=== PATIENT | male | born 1955 | race Caucasian/White ===

== ENCOUNTER → 2019-12-15 10:19 | Outpatient (CLI) | payer MEDICARE, OTHER, SELFPAY ==
--- NOTE | 2019-12-15 11:56 | PM.TREADMILL ---
Cardiac Stress Test Report Referral & Results Date Patient Seen: 12/15/19 Time Patient Seen: 11:56 Requesting provider: Arjun Bowers Indication: dyspnea Rest ECG: sinus rhythm Procedure Note: Standard [place] protocol, 10:00, 10.7 METS Very good exercise capacity, OTILIA -25% Normal hemodynamic response to exercise No chest pain or anginal symptoms Resting ECG sinus rhythm, no ST changes or ectopy Impression: Normal exercise stress test. Please note: Actual ECG tracings can be found in the PACS system.
== END ==
PROVIDERS: Family Provider Internal Medicine; Referring Provider Student in an Organized Health Care Education/Training Program; Visit Provider Student in an Organized Health Care Education/Training Program
DX: R06.09 Other forms of dyspnea (principal)
CPT/HCPCS: 93017

== ENCOUNTER → 2020-02-23 08:07 | Outpatient (CLI) | payer MEDICARE, OTHER, SELFPAY ==
--- NOTE | 2020-02-29 09:20 | PM.PFT.1 ---
Pulmonary Function Test Referral & Results Date Patient Seen: 02/23/20 Requesting provider: Arjun Bowers Results: The spirometry demonstrates an FVC of 3.46 L which is 67% of predicted. The FEV1 was measured at 2.57 L which is 67% of predicted. The FEV1/FVC ratio was 74 which is 99% of predicted. Following the administration of bronchodilator there was a 33% improvement in FEV1 and a 135% improvement in FEF 25-75%. Lung volumes show an SVC of 4.53 L which is 88% of predicted. The diffusing capacity was measured at 36.54 which is 100% of predicted. The maximum voluntary ventilation was normal Interpretation: This study demonstrates mild to moderate obstructive lung disease with evidence of significant benefit following bronchodilator as above Lung volumes are probably normal as is diffusing capacity This is consistent with a diagnosis of asthma
== END ==
PROVIDERS: Family Provider Internal Medicine; PCP Student in an Organized Health Care Education/Training Program; Referring Provider Student in an Organized Health Care Education/Training Program; Visit Provider Student in an Organized Health Care Education/Training Program
DX: R06.09 Other forms of dyspnea (principal); J98.8 Other specified respiratory disorders
CPT/HCPCS: 94060; 94726; 94729

== ENCOUNTER 2022-12-25 18:01 | Emergency (ER) | payer MEDICARE, OTHER, SELFPAY ==
[2022-12-25] VITALS (9 sets, daily range): BP systolic 124–137; BP diastolic 72–89; PULSE 80–124; RESP 12–19; TEMP 37.1; O2SAT 95–98; BMI 31.6
--- NOTE | 2022-12-25 18:07 | DI.RAD.S_ITS ---
PROCEDURE: XR CHEST 1V INDICATIONS: chest pain TECHNIQUE: One view of the chest was acquired. COMPARISON: [facility], CR, CHEST 2 VIEW, 11/25/2010, 15:22. [facility], , CHEST 2 VIEW, 10/05/2008, 17:03. FINDINGS: Surgical changes and devices: None. Lungs and pleura: On this semiupright portable chest examination, no large pneumothorax or large pleural effusions are seen. No focal infiltrates are seen. Low lung volumes are noted. This causes a crowded appearance to the lung markings and limits evaluation. Mediastinum: Mediastinal contours appear normal. Heart size is normal. Bones and chest wall: No suspicious bony lesions. Age-appropriate bony degenerative changes are seen. Overlying soft tissues appear unremarkable. IMPRESSION: Limited portable chest examination, without a significant cardiopulmonary abnormality identified. Dictated by: Emmett Mac M.D. on 12/25/2022 at 18:03 Approved by: Emmett Mac M.D. on 12/25/2022 at 18:03
[2022-12-25 18:22] LABS: Add Manual Diff / Slide Review NO; Basophils Absolute Auto 100 /uL (0-100); Basophils Percent Auto 0.8 % (0-2); Eosinophils Absolute Auto 100 /uL (0-450); Eosinophils Percent Auto 0.9 % (2-4); Hematocrit 49.3 % (41-53); Hemoglobin 16.9 g/dL (13.5-17.5); Lymphocytes Absolute Auto 2300 /uL (1100-4500); Lymphocytes Percent Auto 22.1 % (25-40); Mean Corpuscular HGB Conc 34.3 % (30-36); Mean Corpuscular Hemoglobin 29.9 PG (26-34); Mean Corpuscular Volume 87.1 fL (80-100); Monocytes Absolute Auto 900 /uL (0-900); Monocytes Percent Auto 8.4 % (3-14); Neutrophils Absolute Auto 7100 /uL (1500-7000); Neutrophils Percent Auto 67.8 % (50-75); Platelet Count 238 X10^3/uL (150-400); Red Blood Cell Count 5.66 X10^6/uL (4.5-5.9); Red Cell Distribution Width 13.2 % (11.6-14.8); White Blood Cell Count 10.5 X10^3/uL (4.5-11.0)
[2022-12-25 18:32] LABS: INR 1.1 (0.9-1.3); Prothrombin Time 12.9 SECONDS (10.1-12.7)
[2022-12-25 18:35] LABS: PTT Partial Thromboplastin Tim 31 SECONDS (26-36)
[2022-12-25 18:36] LABS: Alanine Aminotransferase 27 IU/L (<50); Albumin Globulin Ratio 1.4 (1.0-2.8); Alkaline Phosphatase 46 U/L (38-126); Aspartate Aminotransferase 33 IU/L (17-59); BUN Creatinine Ratio 13.2 (6-22); Bilirubin Total 1.2 mg/dL (0.2-1.3); Blood Urea Nitrogen 18 mg/dL (9-20); Calcium 9.9 mg/dL (8.4-10.2); Carbon Dioxide 23 mmol/L (22-32); Chloride 102 mmol/L (98-107); Creatine Kinase 252 U/L (55-170); Estimated Glomerular Filt Rate 57 mL/min (>60); Globulin 3.5 g/dL (1.7-4.1); Glucose 121 mg/dL (80-110); Lipase 59 U/L (23-300); Magnesium 2.1 mg/dL (1.6-2.3); Potassium 3.6 mmol/L (3.4-5.1); Sodium 139 mmol/L (137-145); Total Protein 8.5 g/dL (6.3-8.2)
[2022-12-25 18:48] LABS: Troponin I 0.016 ng/mL (0.01-0.034)
[2022-12-25 18:51] LABS: CKMB % Relative Index 0.9 % (1.5-5.0); HEMOLYSIS 16 (0-50)
--- NOTE | 2022-12-25 22:07 | ED_ITS ---
HPI - Arrhythmia/Palpitations General Chief Complaint: Arrhythmia/Palpitations Stated Complaint: concerned about high HR 154 ongoing for 1hr Time Seen by Provider: 12/25/22 22:07 Source: patient Mode of arrival: Ambulatory History of Present Illness HPI narrative: Patient is a healthy 67-year-old male who does not take any medication presents today with palpitations. He reports that he has been on a 1-2 day fast but staying hydrated he says he was sitting in the [place] when he got notified by his watch that his heart rate was 130 then in the 150s. He felt some palpitations no dizziness or lightheadedness. It seems to have now tapered off. He had an EKG when he arrived showing a sinus rhythm at 123bpm He reports this has happened to him 1 other time before. No history of atrial flutter or atrial fibrillation. He now has no symptoms he is no chest pain or shortness breath no nausea vomiting overall feeling significantly better. Related Data Allergies Allergy/AdvReac Type Severity Reaction Status Date / Time No Known Drug Allergies Allergy Verified 12/25/22 18:05 Review of Systems Review of Systems ROS Unobtainable: All systems reviewed & are unremarkable except as noted in HPI and below Patient History Social History Smoking Status: Unknown if ever smoked Smoking Status: Unknown if ever smoked alcohol intake frequency: holidays/special occasions only Substance Use Type: does not use Exam Initial Vital Signs Initial Vital Signs: Vital Signs Temperature 98.7 F 12/25/22 18:05 Pulse Rate 124 H 12/25/22 18:05 Respiratory Rate 17 12/25/22 18:05 Blood Pressure 137/89 12/25/22 18:05 Pulse Oximetry 96 12/25/22 18:05 Oxygen Delivery Method Room Air 12/25/22 18:05 GENERAL: Alert pleasant 67-year-old male no acute distress HEENT: Head atraumatic,EOMI, pupils reactive, face symmetric, moist mucous membranes CARDIOVASCULAR: Regular rate and rhythm without murmurs, rubs or gallops. RESPIRATORY: Breath sounds equal bilaterally, no wheezes rales or rhonchi. ABDOMEN: Soft, nontender. Normoactive bowel sounds all 4 quadrants. No guarding or rebound. EXTREMITIES: Normal range of motion, no clubbing or edema. Neurovascularly intact NEUROLOGICAL: Alert and oriented x4.Normal gait and speech. SKIN: Warm, dry, no laceration, no petechiae, no rashes or lesions. Course Orders Ordered: ED Orders 12/25/22 18:07 XR chest 1V Stat 12/25/22 18:08 Complete Blood Count AUTO DIFF Stat Comprehensive Metabolic Panel Stat Lipase Stat Magnesium Stat PTT Partial Thromboplastin Jarret Stat Prothrombin Time INR Stat Troponin & CK Cardiac Panel Stat 12/25/22 18:13 EKG-12 Lead Stat Vital Signs Vital signs: Vital Signs - 8 hr 12/25/22 22:00 12/25/22 22:00 Pulse Rate 80 Respiratory Rate 16 Blood Pressure 129/76 Pulse Oximetry 95 MDM - Arrhythmia/Palpitations Lab Data 12/25/22 18:08 12/25/22 18:08 Labs: Lab Results 12/25/22 12/25/22 12/25/22 Range/Units 18:08 18:08 18:08 WBC 10.5 (4.5-11.0) X10^3/uL RBC 5.66 (4.5-5.9) X10^6/uL Hgb 16.9 (13.5-17.5) g/dL Hct 49.3 (41-53) % MCV 87.1 (80-100) fL MCH 29.9 (26-34) PG MCHC 34.3 (30-36) % RDW 13.2 (11.6-14.8) % Plt Count 238 (150-400) X10^3/uL Neut % (Auto) 67.8 (50-75) % Lymph % (Auto) 22.1 L (25-40) % [place] % (Auto) 8.4 (3-14) % Eos % (Auto) 0.9 L (2-4) % Baso % (Auto) 0.8 (0-2) % Neut # (Auto) 7100 H (6402-3208) /uL Lymph # (Auto) 2300 (2494-1121) /uL [place] # (Auto) 900 (0-900) /uL Eos # (Auto) 100 (0-450) /uL Baso # (Auto) 100 (0-100) /uL PT 12.9 H (10.1-12.7) SECONDS INR 1.1 (0.9-1.3) APTT 31 (26-36) SECONDS Sodium 139 (137-145) mmol/L Potassium 3.6 (3.4-5.1) mmol/L Chloride 102 (98-107) mmol/L Carbon Dioxide 23 (22-32) mmol/L BUN 18 (9-20) mg/dL Creatinine 1.36 H (0.66-1.25) mg/dL Estimated GFR 57 L (>60) mL/min BUN/Creatinine Ratio 13.2 (6-22) Glucose 121 H (80-110) mg/dL Calcium 9.9 (8.4-10.2) mg/dL Magnesium 2.1 (1.6-2.3) mg/dL Total Bilirubin 1.2 (0.2-1.3) mg/dL AST 33 (17-59) IU/L ALT 27 (<50) IU/L Alkaline Phosphatase 46 (38-126) U/L Total Creatine Kinase 252 H (55-170) U/L CK-MB (CK-2) 2.30 (<2.37) ng/mL CK-MB (CK-2) Rel Index 0.9 L (1.5-5.0) % Troponin I 0.016 (0.01-0.034) ng/mL Total Protein 8.5 H (6.3-8.2) g/dL Albumin 5.0 (3.5-5.0) g/dL Globulin 3.5 (1.7-4.1) g/dL Albumin/Globulin Ratio 1.4 (1.0-2.8) Lipase 59 (23-300) U/L Imaging Data Chest x-ray: Radiologist's Impresson: PROCEDURE:? XR CHEST 1V ? INDICATIONS:? chest pain ? TECHNIQUE:? One view of the chest was acquired.? ? COMPARISON:? [facility], , CHEST 2 VIEW, 11/25/2010, 15:22.? [facility], , CHEST 2 VIEW, 10/05/2008, 17:03. ? FINDINGS:? ? Surgical changes and devices:? None.? ? Lungs and pleura:? On this semiupright portable chest examination, no large pneumothorax or large pleural effusions are seen.? No focal infiltrates are seen.? Low lung volumes are noted. This causes a crowded appearance to the lung markings and limits evaluation.? ? Mediastinum:? Mediastinal contours appear normal.? Heart size is normal.? ? Bones and chest wall:? No suspicious bony lesions.? Age-appropriate bony degenerative changes are seen.? ? Overlying soft tissues appear unremarkable.? IMPRESSION:? ? Limited portable chest examination, without a significant cardiopulmonary abnormality identified.? ? ? Dictated by: Emmett Mac M.D. on 12/25/2022 at 18:03 ? ? ECG Data Interpretation: Sinus tachycardia rate [address] changes no T-wave inversions no ST changes EKG 2. Sinus rhythm rate [address] changes improved from previous EKG T-wave inversion noted in lead V3, V4, V5 nonspecific T-wave abnormalities MDM Narrative Medical decision making narrative: Patient is 59-year-old male presents with palpitations and elevated heart rate in the 150s. He is in sinus rhythm although sinus tach initially now heart rate is in the 80s. No other symptoms. Creatinine is slightly elevated at 1.6 possibly from his fasting though he reports that he is drinking fluids. Troponin is negative no other electrolyte abnormalities. Chest x-ray is also negative. At this time he likely had brief arrhythmia and run of tachycardia possibly sinus which is now improving. Recommend a Holter monitor and outpatient follow-up. No concern for pulmonary embolism at this time troponin is negative no concern for acute coronary syndrome. Discharge Plan Departure Patient Disposition: Home Clinical Impression: Heart palpitations Instructions: DI for Palpitations Activity Restrictions/Additional Instructions: *You have been diagnosed with palpitations *What to do: At this time blood work is overall reassuring. I do recommend that you get a Zio patch to monitor your heart rate this can be arranged with your PCP. I do recommend they start eating some this may or may not be related. Your creatinine today is 1.36 this is your kidney function please have this rech ecked with your primary care provider *Continue to take medications as directed *Follow up with your primary care provider in 2-3 days or call [phone] *Return to ER if you should have increasing palpitations dizziness lightheadedness chest pain or any new, worsening or concerning symptoms Referrals: Arjun Bowers MD [Primary Care Provider] - Stand Alone Forms: Patient Portal/API
== END 2022-12-25 22:35 | disposition home or self-care (01) ==
PROVIDERS: Emergency Medicine; Emergency Provider Emergency Medicine; Family Provider Internal Medicine; PCP Student in an Organized Health Care Education/Training Program
DX: R00.2 Palpitations (principal); R07.9 Chest pain, unspecified
CPT/HCPCS: 36415; 71045; 80053; 82550; 82553; 83690; 83735; 84484; 85025; 85610; 85730; 93005; 99283; 99284